=== PATIENT | female | born 1995 | race Caucasian/White ===

== ENCOUNTER 2018-05-08 17:57 | Outpatient (CLI) | payer OTHER ==
[2018-05-08] MEDS ORDERED: PRENATAL TABLE1 EAC1 PO (18:16)
[2018-05-08] MEDS ORDERED: FOLIC ACID1 MG PO (18:18)
[2018-05-08] MEDS ORDERED: CEPHALEXIN500 MG PO (22:11)
[2018-05-08] MEDS ORDERED: BUDESONIDE0.5 MG/2 M IH (22:11)
[2018-05-08] MEDS ORDERED: IPRAT-ALBUT 0.5-3 ML IH (22:11)
== END 2018-05-08 18:54 | disposition still patient (30) ==
LOC: OBS/DEL 17:57
DX: O99.512 Diseases of the respiratory system complicating pregnancy, second trimester (principal); J45.909 Unspecified asthma, uncomplicated; Z34.02 Encounter for supervision of normal first pregnancy, second trimester

== ENCOUNTER 2018-05-08 18:24 | Emergency (ER) | payer OTHER ==
[~2018-05-08] VITALS: Ht 154.9 cm; Wt 98.9 kg
[~2018-05-08 18:24] MED LIST: FOLIC ACID1 MG PO; PRENATAL TABLE1 EAC1 PO
[2018-05-08] MEDS ORDERED: CEPHALEXIN500 MG PO (22:11)
[2018-05-08] MEDS ORDERED: BUDESONIDE0.5 MG/2 M IH (22:11)
[2018-05-08] MEDS ORDERED: IPRAT-ALBUT 0.5-3 ML IH (22:11)
== END 2018-05-08 22:47 | disposition home or self-care (01) ==
LOC: ER 18:24
DX: O26.892 Other specified pregnancy related conditions, second trimester (principal); J45.998 Other asthma; O23.42 Unspecified infection of urinary tract in pregnancy, second trimester; Z34.02 Encounter for supervision of normal first pregnancy, second trimester

== ENCOUNTER 2018-09-09 04:48 | Inpatient (IN) | payer OTHER ==
[~2018-09-09] VITALS: Ht 154.9 cm; Wt 3.2 kg
[~2018-09-09 04:48] MED LIST changes: +BUDESONIDE0.5 MG/2 M IH; +CEPHALEXIN500 MG PO; +IPRAT-ALBUT 0.5-3 ML IH
== END 2018-09-13 12:56 | disposition home or self-care (01) | DRG 788 ==
LOC: LDR 04:48 → OB/GYN 04:48
PROVIDERS: ADMIT Obstetrics & Gynecology
PROC: 3E0P7VZ Introduction of Hormone into Female Reproductive, Via Natural or Artificial Opening (ICD-10-PCS; 2018-09-09)
PROC: 3E033VJ Introduction of Other Hormone into Peripheral Vein, Percutaneous Approach (ICD-10-PCS; 2018-09-09)
PROC: 4A1HXCZ Monitoring of Products of Conception, Cardiac Rate, External Approach (ICD-10-PCS; 2018-09-09)
PROC: 10D00Z1 Extraction of Products of Conception, Low, Open Approach (ICD-10-PCS; principal; 2018-09-10 12:30)
DX: O61.0 Failed medical induction of labor (principal); Z3A.40 40 weeks gestation of pregnancy; Z37.0 Single live birth